=== PATIENT | female | born 1985 | race Caucasian/White ===

== ENCOUNTER 2019-05-26 09:43 | Emergency (ER) | payer OTHER ==
[~2019-05-26] VITALS: Ht 157.5 cm; Wt 60.0 kg
--- NOTE | 2019-05-26 10:58 | NUR ---
PT IN BED AND AT BEDSIDE. PT RESTING COMFORTABLY. UA SENT. NO WANTS OR NEEDS AT THIS TIME.
[2019-05-26 11:24] LABS: CULTURE INDICATED? YES; MICROSCOPIC INDICATED
[2019-05-26 11:51] LABS: BASOPHILS # (AUTO) 0.02 x10^3/uL (0-0.1); BASOPHILS % (AUTO) 0 % (0-1); EOSINOPHILS # (AUTO) 0.02 x10^3/uL (0-0.4); EOSINOPHILS % (AUTO) 0 % (1-7); LYMPHOCYTES # (AUTO) 1.21 x10^3/uL (1-3.4); LYMPHOCYTES % (AUTO) 21 % (22-44); MD NO; MEAN CORPUSCULAR HGB CONC 33.2 g/dL (32.4-35.8); MEAN CORPUSCULAR VOLUME 93.3 fL (80-100); MEAN PLATELET VOLUME 7.6 fL (7.4-10.4); MONOCYTES # (AUTO) 0.33 x10^3/uL (0.2-0.8); MONOCYTES % (AUTO) 6 % (2-9); NEUTROPHILS # (AUTO) 4.13 x10^3/uL (1.8-6.8); NEUTROPHILS % (AUTO) 72 % (42-75); PLATELET COUNT 301 x10^3/uL (130-400); RED BLOOD COUNT 4.24 x10^6/uL (3.82-5.3); RED CELL DISTRIBUTION WIDTH 13.5 % (9.6-15.2)
[2019-05-26 12:02] LABS: ANION GAP 4 mmol/L (5-15); CALCIUM 8.6 mg/dL (8.5-10.1); CHLORIDE 108 mmol/L (98-107); CREATININE 0.79 mg/dL (0.55-1.02)
--- NOTE | 2019-05-26 12:11 | NUR ---
REPORT RC'VD FROM CARLY CARCAMO. AWAITING ALL LAB RESULTS. PT UNDERSTANDS POC. AT BS.
--- NOTE | 2019-05-26 12:34 | NUR ---
ERP AT BS FOR RE-EVAL.
[2019-05-26 12:57] VITALS: BP 105/47
--- NOTE | 2019-05-26 12:57 | NUR ---
D/C INSTRUCTIONS & F/U APPT RV'WD WITH PT AND , THEY VERBALIZE UNDERSTANDING. PT AMBULATED OUT OF ED WITHOUT DIFFICULTY.
== END 2019-05-26 12:59 | disposition home or self-care (01) ==
LOC: EDBD 09:43 → ED 12:53
DX: O26.891 Other specified pregnancy related conditions, first trimester (principal); Z3A.01 Less than 8 weeks gestation of pregnancy; R10.2 Pelvic and perineal pain
CPT/HCPCS: 36415; 76801; 80048; 81001; 82040; 84702; 85025; 87086; 99284